=== PATIENT | male | born 1980 | race Caucasian/White ===

== ENCOUNTER 2019-06-30 13:07 | Emergency (ER) | payer SELFPAY | END 2019-06-30 14:45 | disposition home or self-care (01) | LOC: ERS 13:07 | DX: K04.7 Periapical abscess without sinus (principal); K03.81 Cracked tooth; F31.9 Bipolar disorder, unspecified; F17.210 Nicotine dependence, cigarettes, uncomplicated; Z71.6 Tobacco abuse counseling | CPT/HCPCS: 99406 ==